=== PATIENT | male | born 1960 | race Caucasian/White ===

== ENCOUNTER 2021-02-03 18:44 | Emergency (ER) | payer MEDICARE, OTHER ==
[~2021-02-03 18:44] MED LIST: KEFLEX500 MG PO; NAPROSYN500 MG PO
[2021-02-04] MEDS ORDERED: MOBIC15 MG PO (03:06)
[2021-03-30] MEDS ORDERED: ASPIRIN325 MG PO (13:29)
[2021-03-31] MEDS ORDERED: TYLENOL 8 HOUR650 MG PO (15:42)
== END 2021-02-04 03:05 | disposition home or self-care (01) ==
LOC: ER1 18:44
DX: M25.552 Pain in left hip (principal); M19.90 Unspecified osteoarthritis, unspecified site; Z88.0 Allergy status to penicillin; F17.200 Nicotine dependence, unspecified, uncomplicated
CPT/HCPCS: 73502; 73562; 99283

== ENCOUNTER → 2021-03-30 | Outpatient (CLI) | payer MEDICARE, OTHER ==
[~2021-03-30] MED LIST changes: +ASPIRIN325 MG PO; +ELIQUIS2.5 MG PO; +MOBIC15 MG PO; +PERCOCET 5-3251 EACH PO; +TYLENOL 8 HOUR650 MG PO
[2021-03-30 13:17] LABS: HEMOGLOBIN 14.7 gm/dl (14.0-17.5); RED BLOOD COUNT 4.68 M/UL (4.20-5.50); WHITE BLOOD COUNT 7.3 K/UL (4.5-11.0)
[2021-03-30 13:34] LABS: BUN/CREATININE RATIO 9 (0-10)
== END ==
LOC: OPSV2 03-23 12:30
PROVIDERS: Orthopaedic Surgery
DX: Z01.818 Encounter for other preprocedural examination (principal); M16.12 Unilateral primary osteoarthritis, left hip; R94.31 Abnormal electrocardiogram [ECG] [EKG]
CPT/HCPCS: 36415; 80048; 81001; 85025; 87081; 93005

== ENCOUNTER → 2021-04-04 | Outpatient (CLI) | payer MEDICARE, OTHER ==
[2021-04-04 15:52] LABS: BUN/CREATININE RATIO 9 (0-10)
== END ==
LOC: LAB 14:53
PROVIDERS: Orthopaedic Surgery
DX: Z01.812 Encounter for preprocedural laboratory examination (principal)
CPT/HCPCS: 80048; 86850; 86900; 86901

== ENCOUNTER 2021-04-05 06:19 | Day surgery (SDC) | payer MEDICARE, OTHER ==
[~2021-04-05] VITALS: Ht 180.3 cm; Wt 82.6 kg
[~2021-04-05 06:19] MED LIST changes: -ELIQUIS2.5 MG PO; -PERCOCET 5-3251 EACH PO
[2021-04-05] MEDS ORDERED: PERCOCET 5-3251 EACH PO (13:15)
[2021-04-06 05:34] LABS: RED BLOOD COUNT 3.88 M/UL (4.20-5.50); WHITE BLOOD COUNT 16.9 K/UL (4.5-11.0)
[2021-04-06 05:35] LABS: HEMOGLOBIN 11.9 gm/dl (14.0-17.5)
[2021-04-06 05:55] LABS: BUN/CREATININE RATIO 13 (0-10)
[2021-04-06] MEDS ORDERED: ELIQUIS2.5 MG PO (10:29)
--- NOTE | 2021-04-06 11:28 | NUR ---
INSTRUCTED PATIENT TAKE ALL MEDS ORDERED. USE SAFETY WITH [facility] TO BE SET UP FOR PHYSICAL THERAPY IN THE HOME. KEEP FOLLOW UP APPOINTMENTS. RUPAL KINGSLEY R.N.
== END 2021-04-06 16:03 | disposition home or self-care (01) ==
LOC: OR 06:19 → EDSTATUS 09:30 → M/S 16:32 → OR 04-06 16:03
PROVIDERS: Orthopaedic Surgery
DX: M16.12 Unilateral primary osteoarthritis, left hip (principal); G89.29 Other chronic pain; Z98.2 Presence of cerebrospinal fluid drainage device; F17.210 Nicotine dependence, cigarettes, uncomplicated; Z88.0 Allergy status to penicillin; Z79.01 Long term (current) use of anticoagulants; Z88.1 Allergy status to other antibiotic agents
CPT/HCPCS: 36415; 72170; 73502; 76000; 80048; 85025; 97116-GP-CQ; 97162; 97166; 97530; 97535; C1776; J0171; J0690; J1100; J1170; J1885; J2250; J2405; J2704; J2795; J3010; J3370; J7030; J7050; J7120

== ENCOUNTER 2021-06-23 16:11 | Inpatient (IN) | payer MEDICARE, OTHER ==
[~2021-06-23] VITALS: Ht 182.9 cm; Wt 81.6 kg
[~2021-06-23 16:11] MED LIST changes: +ELIQUIS2.5 MG PO; +PERCOCET 5-3251 EACH PO
[2021-06-23 16:58] LABS: HEMOGLOBIN 15.2 gm/dl (14.0-17.5); RED BLOOD COUNT 5.07 M/UL (4.20-5.50); WHITE BLOOD COUNT 2.9 K/UL (4.5-11.0)
[2021-06-23 17:23] LABS: BUN/CREATININE RATIO 5 (0-10)
[2021-06-24 04:04] LABS: RED BLOOD COUNT 4.77 M/UL (4.20-5.50)
[2021-06-24 04:08] LABS: WHITE BLOOD COUNT 1.7 K/UL (4.5-11.0)
[2021-06-24 04:26] LABS: BUN/CREATININE RATIO 5 (0-10)
[2021-06-25 02:48] LABS: HEMOGLOBIN 13.9 gm/dl (14.0-17.5); RED BLOOD COUNT 4.69 M/UL (4.20-5.50)
[2021-06-25 03:04] LABS: WHITE BLOOD COUNT 2.9 K/UL (4.5-11.0)
[2021-06-25 03:52] LABS: BUN/CREATININE RATIO 8 (0-10)
[2021-06-25 17:44] LABS: BORDETELLA PARAPERTUSSIS Not Detected (Not Detectd); BORDETELLA PERTUSSIS Not Detected (Not Detectd); CHLAMYDIA PNEUMONIAE Not Detected (Not Detectd); CORONAVIRUS HKU1 Not Detected (Not Detectd); CORONAVIRUS NL63 Not Detected (Not Detectd); CORONAVIRUS OC43 Not Detected (Not Detectd); CORONOAVIRUS 229E Not Detected (Not Detectd); HUMAN METAPNEUMOVIRUS Not Detected (Not Detectd); HUMAN RHINOVIRUS/ENTEROVIRUS Not Detected (Not Detectd); INFLUENZA A Not Detected (Not Detectd); INFLUENZA B Not Detected (Not Detectd); MYCOPLASMA PNEUMONIAE Not Detected (Not Detectd); PARAINFLUENZA VIRUS 1 Not Detected (Not Detectd); PARAINFLUENZA VIRUS 2 Not Detected (Not Detectd); PARAINFLUENZA VIRUS 3 Not Detected (Not Detectd); PARAINFLUENZA VIRUS 4 Not Detected (Not Detectd); RESPIRATORY SYNCYTIAL VIRUS Not Detected (Not Detectd)
[2021-06-25 19:35] LABS: SARS-CoV-2 DETECTED (Not Detectd)
[2021-06-26 06:41] LABS: RED BLOOD COUNT 5.08 M/UL (4.20-5.50)
[2021-06-26 06:49] LABS: WHITE BLOOD COUNT 5.1 K/UL (4.5-11.0)
[2021-06-26 07:21] LABS: BUN/CREATININE RATIO 9 (0-10)
[2021-06-27 05:22] LABS: HEMOGLOBIN 15.2 gm/dl (14.0-17.5); RED BLOOD COUNT 5.12 M/UL (4.20-5.50); WHITE BLOOD COUNT 5.6 K/UL (4.5-11.0)
[2021-06-27 05:42] LABS: BUN/CREATININE RATIO 13 (0-10)
[2021-06-28 18:53] LABS: HEMOGLOBIN 15.9 gm/dl (14.0-17.5); RED BLOOD COUNT 5.35 M/UL (4.20-5.50)
[2021-06-28 18:54] LABS: WHITE BLOOD COUNT 3.7 K/UL (4.5-11.0)
[2021-06-28 19:06] LABS: BUN/CREATININE RATIO 16 (0-10)
[2021-06-29 06:42] LABS: HEMOGLOBIN 16.2 gm/dl (14.0-17.5); RED BLOOD COUNT 5.41 M/UL (4.20-5.50)
[2021-06-29 06:43] LABS: WHITE BLOOD COUNT 5.4 K/UL (4.5-11.0)
[2021-06-29 07:22] LABS: BUN/CREATININE RATIO 14 (0-10)
[2021-06-30 02:47] LABS: HEMOGLOBIN 16.1 gm/dl (14.0-17.5); RED BLOOD COUNT 5.37 M/UL (4.20-5.50); WHITE BLOOD COUNT 6.3 K/UL (4.5-11.0)
[2021-06-30 03:04] LABS: BUN/CREATININE RATIO 16 (0-10)
[2021-07-01 03:44] LABS: HEMOGLOBIN 14.4 gm/dl (14.0-17.5); RED BLOOD COUNT 5.02 M/UL (4.20-5.50)
[2021-07-01 03:45] LABS: WHITE BLOOD COUNT 4.4 K/UL (4.5-11.0)
[2021-07-01 04:00] LABS: BUN/CREATININE RATIO 15 (0-10)
[2021-07-01] MEDS ORDERED: HYDROCODON-ACE1 EAC4 PO (16:02)
[2021-07-01] MEDS ORDERED: DEXAMETHASONE6 MG PO (16:02)
== END 2021-07-01 20:00 | disposition home health service (06) | DRG 871 ==
LOC: ER1 16:11 → MED SURG 4 21:15 → CDU 21:15 → MED SURG 4 22:53
PROVIDERS: Internal Medicine; Physician Assistant; ADMIT Internal Medicine
PROC: 3E0333Z Introduction of Anti-inflammatory into Peripheral Vein, Percutaneous Approach (ICD-10-PCS; principal; 2021-06-25)
PROC: 3E02340 Introduction of Influenza Vaccine into Muscle, Percutaneous Approach (ICD-10-PCS; 2021-06-25)
PROC: XW033E5 Introduction of Remdesivir Anti-infective into Peripheral Vein, Percutaneous Approach, New Technology Group 5 (ICD-10-PCS; 2021-06-25)
DX: A41.89 Other specified sepsis (principal); U07.1 COVID-19; J96.01 Acute respiratory failure with hypoxia; G93.41 Metabolic encephalopathy; R65.21 Severe sepsis with septic shock; J15.9 Unspecified bacterial pneumonia; J12.82 Pneumonia due to coronavirus disease 2019; E88.09 Other disorders of plasma-protein metabolism, not elsewhere classified; D64.9 Anemia, unspecified; E87.6 Hypokalemia; R53.81 Other malaise; R53.83 Other fatigue; E83.42 Hypomagnesemia; E87.8 Other disorders of electrolyte and fluid balance, not elsewhere classified; Z79.899 Other long term (current) drug therapy; Z79.82 Long term (current) use of aspirin; Z23 Encounter for immunization
CPT/HCPCS: 36415; 36600; 70450; 71045; 71046; 80048; 80053; 81001; 82803; 82962; 83605; 83615; 83735; 84132; 85025; 85027; 86140; 87040; 87205; 87633; 93005; 94640; 94760; 96374; 96375; 97162; 97164; 99285; G0378; J0456; J0692; J0696; J1100; J1650; J1956; J2185; J2930; J3370; J7030; J7070; U0002